=== PATIENT | female | born 1995 | race Caucasian/White ===

== ENCOUNTER 2017-10-09 13:20 | Emergency (ER) | payer SELFPAY ==
[~2017-10-09 13:20] MED LIST: ISOVUE-370 76%-LOCM 1 ML ONE; Iopamidol 370 76% 50 ML VIAL FS ONE
[2017-10-09 14:07] LABS: #Monocytes 0.8 thou/uL (0.11-0.59); #Neutrophils 6.6 thou/uL (1.40-6.50); %Basophils 0.3 % (0.0-1.0); %Eosinophils 0.5 % (0.0-10.0); %Lymphocytes 12.3 % (21.0-51.0); %Monocytes 9.3 % (0.0-10.0); %Neutrophils 77.7 % (42.0-75.0); Hemoglobin 12.1 g/dL (12.0-16.0); Mean Corpuscular HGB CONC 34.3 g/dL (32.0-36.0); Mean Corpuscular Hemoglobin 33.7 pg (27.0-31.0); Mean Corpuscular Volume 98.3 fL (78.0-98.0); Mean Platelet Volume 7.3 fL (7.4-10.4); Platelet Count 304 thou/uL (130-400); RBC Distribution Width 10.8 % (11.5-14.5); Red Blood Cell (RBC) Count 3.58 mill/uL (4.20-5.40); White Blood Cell (WBC) Count 8.5 thou/uL (4.8-10.8)
[2017-10-09 14:16] LABS: BHCG - Serum Negative (NEGATIVE); Pregs Control Background? CLEAR/WHITE (CLR/WHITE); Pregs Control Bar Appear? YES (CONTROL BAR)
[2017-10-09 14:28] LABS: ALT (SGPT) 17 U/L (8-55); AST (SGOT) 15 U/L (5-34); Albumin 3.8 g/dL (3.5-5.0); Alkaline Phosphatase 31 U/L (40-150); Anion Gap 15 mmol/L (10-20); BUN (Urea Nitrogen) 10 mg/dL (7.0-18.7); Bilirubin, Total 0.4 mg/dL (0.2-1.2); Calc. Creatinine Clearance 0 mL/min (70-130); Calcium 9.8 mg/dL (7.8-10.44); Carbon Dioxide 25 mmol/L (22-29); Chloride 102 mmol/L (98-107); Estimated GFR-MDRD Greater than 90; Globulin 4.2 g/dL (2.4-3.5); Glucose 82 mg/dL (70-105); Potassium 4.2 mmol/L (3.5-5.1); Sodium 138 mmol/L (136-145)
--- NOTE | 2017-10-09 16:13 | CT ---
CT ABDOMEN AND PELVIS WITH IV AND ORAL CONTRAST: Date: 10/09/17 HISTORY: Right lower quadrant pain. Fever. FINDINGS: Lung bases are clear. The liver, spleen, kidneys, adrenal glands, and pancreas have a normal CT appea diego. No enlarged lymph nodes or free fluid are apparent. The appendix is not inflamed. Metallic contraceptive device is apparent within the endometrial cavity of the uterus. Endometrium incompletely distended. Physiologic amount of free fluid within the pelvi s. Follicles associated with each ovary. Subtle circumferential wall thickening involves nondilated loops of jejunum within the left mid abdom en. IMPRESSION: 1. No CT evidence of acute appendicitis. 2. Mild nonspecific circumferential wall thickening of jejunal loops in the left abdomen. Clinical c orrelation regarding other signs and symptoms of left abdominal regional enteritis is required. 3. Intrauterine contraceptive device. POS: JOSHUA
== END 2017-10-09 16:30 | disposition home or self-care (01) ==
LOC: ERS 13:20
DX: K52.9 Noninfective gastroenteritis and colitis, unspecified (principal); F41.9 Anxiety disorder, unspecified; F32.9 Major depressive disorder, single episode, unspecified
CPT/HCPCS: 74177; 80053; 84703; 85025

== ENCOUNTER 2019-09-29 10:35 | Outpatient (CLI) | payer BC ==
--- NOTE | 2019-09-30 12:37 | NM ---
RADIOIODINE THYROID UPTAKE AND SCAN: HISTORY: Hyperthyroidism. Low TSH and normal free T4 levels and high thyroid peroxidase antibodies on 11/06/2019 RADIOPHARMACEUTICAL: 220 uCi I-123 administered orally FINDINGS: Planar anterior and both anterior oblique images of the thyroid gland were obtained. There is homogeneous increased tracer distribution to both lobes of the thyroid gland without focal c old or hot nodules. The 24-hour uptake measures 47 % (normal 10-30%). IMPRESSION: Hyperthyroid Graves' disease
== END 2019-09-29 10:36 | disposition home or self-care (01) ==
LOC: NM 10:35
PROVIDERS: ATTEND Internal Medicine Endocrinology, Diabetes & Metabolism
DX: E03.9 Hypothyroidism, unspecified (principal); E05.00 Thyrotoxicosis with diffuse goiter without thyrotoxic crisis or storm
CPT/HCPCS: 78014; A9516

== ENCOUNTER 2019-11-03 12:05 | Outpatient (CLI) | payer BC ==
[2019-11-03 12:50] LABS: BHCG - Serum Negative (NEGATIVE); Pregs Control Background? CLEAR/WHITE (CLR/WHITE); Pregs Control Bar Appear? YES (CONTROL BAR)
--- NOTE | 2019-11-03 13:35 | NM ---
Radionucleotide iodine 131 thyroid initial treatment HISTORY: Graves' disease. Hyperthyroidism. FINDINGS: After explaining the procedure, alternative treatment, risks and potential complications, a nd importance of quarantine protocol, all questions were answered. Patient was uneventfully dosed with 10.5 mCi iodine-131 p.o. No difficulties reported. Patient will be monitored approximately 20 minutes prior to discharge and well follow-up clinically rebecca Roy. IMPRESSION : Technically successful dosing for iodine-131 treatment.
== END 2019-11-03 12:06 | disposition home or self-care (01) ==
LOC: NM 12:05
PROVIDERS: ATTEND Internal Medicine Endocrinology, Diabetes & Metabolism
DX: E05.90 Thyrotoxicosis, unspecified without thyrotoxic crisis or storm (principal)
CPT/HCPCS: 79005; 84703; A9517